=== PATIENT | female | born 1990 | race Caucasian/White ===

== ENCOUNTER 2017-05-15 08:39 | Emergency (ER) | payer BC ==
[2017-05-15] MEDS ORDERED: Sodium Chloride 0.9% 1,000 ML IV STA (09:03)
--- NOTE | 2017-05-15 09:05 | C.PDOC ---
History Of Present Illness 27 y/o female presents to ED for evaluation of progressive diarrhea and intermittent abdominal pain for the past few months. Pt states that her stool was black, tinged with blood "this summer", and was seen by Dr. Xiao, internist medical doctor md, had stool sample taken which was normal. Pt states that the frequency of diarrhea has increased in the past week. Notes that she is eating and drinking fluids well. Notes taking Pepto-Bismol without improvement. Denies any blood in the stool at this time. Denies nausea, vomiting, or fever. Time Seen by Provider: 05/15/17 08:50 Chief Complaint (Nursing): Abdominal Pain History Per: Patient History/Exam Limitations: no limitations Onset/Duration Of Symptoms: Days Current Symptoms Are (Timing): Still Present Location Of Pain/Discomfort: Diffuse Radiation Of Pain To:: None Quality Of Discomfort: "Pain" Associated Symptoms: Diarrhea. denies: Fever, Chills, Nausea, Vomiting, Loss Of Appetite, Back Pain, Chest Pain, Constipation, Urinary Symptoms Exacerbating Factors: None Alleviating Factors: None Recent travel outside of the [place]: No Additional History Per: Patient Abnormal Vaginal Bleeding: No Last Menstral Period: "2 weeks ago" Past Medical History Reviewed: Historical Data, Nursing Documentation, Vital Signs Vital Signs: Last Vital Signs Temp 98.4 F 05/15/17 08:41 Pulse 105 H 05/15/17 08:41 Resp 18 05/15/17 08:41 BP 105/74 05/15/17 08:41 Pulse Ox 100 05/15/17 09:10 Family History: States: Unknown Family Hx - Social History Hx Alcohol Use: Yes Hx Substance Use: No - Immunization History Hx Tetanus Toxoid Vaccination: No Hx Influenza Vaccination: No Hx Pneumococcal Vaccination: No Review Of Systems Except As Marked, All Systems Reviewed And Found Negative. Constitutional: Negative for: Fever, Chills Cardiovascular: Negative for: Chest Pain, Palpitations Respiratory: Negative for: Shortness of Breath Gastrointestinal: Positive for: Abdominal Pain, Diarrhea. Negative for: Nausea , Vomiting, Constipation, Melena, Hematochezia Genitourinary: Negative for: Dysuria, Frequency, Hematuria Musculoskeletal: Negative for: Back Pain Physical Exam - Physical Exam Appears: Non-toxic, No Acute Distress Skin: Normal Color, Warm, Dry, No Pale, No Jaundice Head: Atraumatic, Normacephalic Eye(s): bilateral: Normal Inspection Oral Mucosa: Moist Cardiovascular: Rhythm Regular (tachycardic), No Murmur Respiratory: Normal Breath Sounds, No Rales, No Rhonchi, No Wheezing Gastrointestinal/Abdominal: Bowel Sounds (normal), Soft, Tenderness (mild diffuse), No Guarding, No Rebound Back: Normal Inspection Extremity: Normal ROM Neurological/Psych: Oriented x3, Normal Speech ED Course And Treatment - Laboratory Results Result Diagrams: 05/15/17 09:04 05/15/17 09:04 O2 Sat by Pulse Oximetry: 100 Pulse Ox Interpretation: Normal Medical Decision Making Medical Decision Making: Blood work, UA ordered and reviewed. Pt was given IV fluids. Disposition Doctor Will See Patient In The: Office Counseled Patient/Family Regarding: Studies Performed, Diagnosis, Need For Followup - Disposition Referrals: Issac Xiao MD [Staff Provider] - Disposition Time: 10:20 Condition: STABLE Instructions: Acute Diarrhea (ED) Forms: [employer] (Guyanese) - Clinical Impression Clinical Impression: Diarrhea, Diarrhea - Scribe Statement The provider has reviewed the documentation as recorded by the Scribisaias Dowd All medical record entries made by the Scribe were at my direction and personally dictated by me. I have reviewed the chart and agree that the record accurately reflects my personal performance of the history, physical exam, medical decision making, and the department course for this patient. I have also personally directed, reviewed, and agree with the discharge instructions and disposition.
[2017-05-15] MEDS ORDERED: Sodium Chloride 0.9% 1,000 ML ONE (09:09)
[2017-05-15 09:10] LABS: BASO % 0.4 % (0.0-2.0); EOS # 0.2 K/uL (0.0-0.7); EOS % 2.6 % (0.0-4.0); HEMATOCRIT 42.3 % (34.0-47.0); LYMPH # 1.6 K/uL (1.0-4.3); MEAN CELL VOLUME 86.7 fL (81.0-99.0); MEAN CORPUSCULAR HEMOGLOBIN 28.7 pg (27.0-31.0); MEAN CORPUSCULAR HGB CONC 33.1 g/dL (33.0-37.0); MEAN PLATELET VOLUME 8.1 fL (7.2-11.7); MONO # 0.7 K/uL (0.0-0.8); MONO % 8.2 % (0.0-10.0); NRBC % 0.1 % (0.0-2.0); RED CELL DISTRIBUTION WIDTH 14.2 % (11.5-14.5)
[2017-05-15 09:23] LABS: ALB/GLOB RATIO 1.2 (1.0-2.1); ALKALINE PHOSPHATASE 32 U/L (38-126); ALT/SGPT 42 U/L (9-52); AST/SGOT 28 U/L (14-36); BILIRUBIN,TOTAL 0.7 mg/dL (0.2-1.3); BLOOD UREA NITROGEN 9 mg/dL (7-17); CALCIUM 8.3 mg/dl (8.6-10.4); CARBON DIOXIDE 26 mmol/L (22-30); CHLORIDE 103 mmol/L (98-107); GFR AFRICAN-AMERICAN > 60; GLUCOSE,RANDOM 146 mg/dL (65-105); POTASSIUM 3.9 mmol/L (3.6-5.2); SODIUM 136 mmol/L (132-148); TOTAL PROTEIN 6.5 g/dL (6.3-8.3)
[2017-05-15 10:19] VITALS: BP 100/68; PULSE 69; RESP 20; TEMP 98.2; O2SAT 98
== END 2017-05-15 10:32 | disposition home or self-care (01) ==
LOC: C.ER 08:39
DX: R19.7 Diarrhea, unspecified (principal)
CPT/HCPCS: 80053; 85025; 96360; 99284; J7040